=== PATIENT | male | born 1955 | race Caucasian/White ===

== ENCOUNTER → 2018-04-19 13:17 | Outpatient (CLI) | payer OTHER, SELFPAY ==
[2018-04-21 14:25] LABS: EBV EBNA Antibody IgG > 600.00 U/mL (< 18.00); EBV Virus IgM Ab < 36.00 U/mL (< 36.00)
== END ==
PROVIDERS: PCP Naturopath; Visit Provider Acupuncturist
DX: B27.00 Gammaherpesviral mononucleosis without complication (principal); A49.3 Mycoplasma infection, unspecified site; J16.0 Chlamydial pneumonia
CPT/HCPCS: 36415; 86631; 86632; 86663; 86664; 86665; 86738

== ENCOUNTER → 2018-05-04 07:40 | Outpatient (CLI) | payer OTHER, SELFPAY | PROVIDERS: PCP Naturopath; Visit Provider Acupuncturist | DX: B27.00 Gammaherpesviral mononucleosis without complication (principal) | CPT/HCPCS: 86665 ==

== ENCOUNTER → 2018-07-31 12:03 | Outpatient (CLI) | payer OTHER, SELFPAY ==
[2018-07-31 13:41] LABS: Cholesterol 202 mg/dL (140-199); HDL Cholesterol 65 mg/dL (40-60); LDL Cholesterol Calculated 106 mg/dL (<100); Triglycerides 155 mg/dL (35-150)
[2018-07-31 15:50] LABS: Hep C Virus Ab w/Reflex Quant NEGATIVE s/c (NEGATIVE); Hepatitis B Surface Antigen NEGATIVE s/c (NEGATIVE)
[2018-08-02 15:08] LABS: Hepatitis B Surf Ab Qualitativ Nonreactive (Nonreactive)
== END ==
PROVIDERS: PCP Naturopath; Visit Provider Acupuncturist
DX: B27.00 Gammaherpesviral mononucleosis without complication (principal); J16.0 Chlamydial pneumonia; A49.3 Mycoplasma infection, unspecified site; Z13.9 Encounter for screening, unspecified
CPT/HCPCS: 36415; 80061; 86631; 86632; 86706; 86738; 86803; 87340

== ENCOUNTER → 2018-08-24 08:52 | Outpatient (CLI) | payer OTHER, SELFPAY ==
[2018-08-24 09:28] LABS: Alanine Aminotransferase 44 IU/L (21-72); Albumin 4.2 g/dL (3.5-5.0); Albumin Globulin Ratio 1.4 (1.0-2.8); Alkaline Phosphatase 120 U/L (38-126); Aspartate Aminotransferase 34 IU/L (17-59); Bilirubin Total 0.2 mg/dL (0.2-1.3); Blood Urea Nitrogen 18 mg/dL (9-20); Calcium 9.2 mg/dL (8.4-10.2); Carbon Dioxide 33 mmol/L (22-32); Chloride 101 mmol/L (98-107); Estimated Glomerular Filt Rate > 60.0 mL/min (>60); Globulin 2.9 g/dL (1.7-4.1); Glucose 96 mg/dL (80-110); HEMOLYSIS < 15 (0-50); Potassium 4.5 mmol/L (3.4-5.1); Sodium 143 mmol/L (137-145); Total Protein 7.1 g/dL (6.3-8.2)
[2018-08-24 10:37] LABS: Free T3, Triiodothyronine Free 3.48 pg/mL (2.77-5.27)
[2018-08-24 10:38] LABS: Vitamin D 25 Hydroxy (D3) 73.2 ng/mL (30.0-100.0)
[2018-08-24 10:51] LABS: Thyroid Stimulating Hormone 2.54 uIU/mL (0.47-4.68)
[2018-08-24 11:34] LABS: Hemoglobin A1C% w Est Avg Glu 5.8 % (4.0-6.0)
[2018-08-26 11:33] LABS: Sex Hormone Binding Globulin 56 nmol/L (22-77)
[2018-08-28 12:25] LABS: Dehydroepiandrosterone Sulfate 77 mcg/dL (38-313)
[2018-08-29 14:46] LABS: Triiodothyronine T3 Reverse 15 ng/dL (8-25)
== END ==
PROVIDERS: PCP Naturopath; Visit Provider Acupuncturist
DX: Z00.00 Encounter for general adult medical examination without abnormal findings (principal); Z13.220 Encounter for screening for lipoid disorders; E63.9 Nutritional deficiency, unspecified; E55.9 Vitamin D deficiency, unspecified; E29.9 Testicular dysfunction, unspecified
CPT/HCPCS: 36415; 80053; 82306; 82627; 82728; 83036; 84270; 84402; 84443; 84481; 84482

== ENCOUNTER → 2019-05-29 07:25 | Outpatient (CLI) | payer OTHER, SELFPAY ==
[2019-05-29 08:51] LABS: Add Manual Diff / Slide Review NO; Basophils Absolute Auto 100 /uL (0-100); Basophils Percent Auto 1.9 % (0-2); Eosinophils Absolute Auto 300 /uL (0-450); Eosinophils Percent Auto 5.2 % (2-4); Hematocrit 41.7 % (41-53); Hemoglobin 14.3 g/dL (13.5-17.5); Lymphocytes Absolute Auto 2000 /uL (1100-4500); Lymphocytes Percent Auto 34.6 % (25-40); Mean Corpuscular HGB Conc 34.2 % (30-36); Mean Corpuscular Hemoglobin 30.9 PG (26-34); Mean Corpuscular Volume 90.4 fL (80-100); Monocytes Absolute Auto 600 /uL (0-900); Monocytes Percent Auto 9.7 % (3-14); Neutrophils Absolute Auto 2800 /uL (1500-7000); Neutrophils Percent Auto 48.6 % (50-75); Platelet Count 271 X10^3/uL (150-400); Red Blood Cell Count 4.62 X10^6/uL (4.5-5.9); Red Cell Distribution Width 13.2 % (11.6-14.8); White Blood Cell Count 5.7 X10^3/uL (4.5-11.0)
[2019-05-29 09:09] LABS: Alanine Aminotransferase 39 IU/L (21-72); Albumin Globulin Ratio 1.5 (1.0-2.8); Alkaline Phosphatase 87 U/L (38-126); Aspartate Aminotransferase 29 IU/L (17-59); BUN Creatinine Ratio 23.3 (6-22); Bilirubin Total 0.5 mg/dL (0.2-1.3); Blood Urea Nitrogen 21 mg/dL (9-20); Calcium 8.8 mg/dL (8.4-10.2); Carbon Dioxide 28 mmol/L (22-32); Chloride 103 mmol/L (98-107); Cholesterol 179 mg/dL (140-199); Estimated Glomerular Filt Rate > 60.0 mL/min (>60); Globulin 2.7 g/dL (1.7-4.1); Glucose 95 mg/dL (80-110); HDL Cholesterol 65 mg/dL (40-60); HEMOLYSIS < 15 (0-50); LDL Cholesterol Calculated 103 mg/dL (<100); Potassium 4.4 mmol/L (3.4-5.1); Sodium 138 mmol/L (137-145); Total Protein 6.7 g/dL (6.3-8.2); Triglycerides 55 mg/dL (35-150)
[2019-05-29 09:36] LABS: Prostate Specific Antigen Scrn 1.29 ng/mL (0.1-4.0)
[2019-05-29 09:38] LABS: Thyroid Stimulating Hormone 2.09 uIU/mL (0.47-4.68)
== END ==
LOC: LAB 07:27
PROVIDERS: PCP Naturopath; Visit Provider Naturopath
DX: Z00.00 Encounter for general adult medical examination without abnormal findings (principal); N40.1 Benign prostatic hyperplasia with lower urinary tract symptoms; R53.83 Other fatigue
CPT/HCPCS: 36415; 80053; 80061; 84443; 85025; G0103

== ENCOUNTER 2020-06-17 23:04 | Emergency (ER) | payer OTHER, SELFPAY ==
[2020-06-17 23:05] VITALS: BP 161/86; PULSE 58; RESP 20; TEMP 36.4; O2SAT 100
--- NOTE | 2020-06-17 23:18 | ED_ITS ---
HPI - Wound/Laceration General Chief Complaint: Wound/Laceration Stated Complaint: fell off ladder at home head laceration Time Seen by Provider: 06/17/20 23:10 Source: patient Mode of arrival: Ambulatory Limitations: no limitations History of Present Illness HPI narrative: 64-year-old male here for evaluation of injuries that he sustained when he slipped off of a step ladder that he was working on and hitting his head on the ground. There was no loss of conscious. He is not on anticoagulation. He is up-to-date on his tetanus. He states that he only fell a few feet. He has no neck pain. Did sustain a laceration to the back of his head. No neck pain. Review of Systems Constitutional Constitutional: Denies fever(s), Denies frequent falls and Reports headache(s) ENT Ears, Nose, Mouth, and Throat: Denies vertigo, Denies dizziness, Reports headache(s) and Denies disequilibrium Cardiovascular Cardiovascular: Denies chest pain and Denies dyspnea Respiratory Respiratory: Denies dyspnea Gastrointestinal Gastrointestinal: Denies abdominal pain Integumentary/Breasts Comments: Laceration to back of head Neurologic Neurologic: Denies behavioral changes, Denies confusion, Denies vertigo, Denies dizziness, Denies frequent falls, Reports headache(s) and Denies disequilibrium Psychiatric Psychiatric: Denies behavioral changes and Denies confusion Hematologic/Lymphatic Hematologic/Lymphatic: Denies easy bleeding and Denies easy bruising Patient History Medical History Healthy adult (Acute) Social History Smoking Status: Never smoker Smoking Status: Never smoker Substance Use Type: does not use Exam Initial Vital Signs Initial Vital Signs: Vital Signs Temperature 97.5 F L 06/17/20 23:05 Pulse Rate 58 L 06/17/20 23:05 Respiratory Rate 20 06/17/20 23:05 Blood Pressure 161/86 H 06/17/20 23:05 Pulse Oximetry 100 06/17/20 23:05 Const General: cooperative and comfortable HENMT Head: laceration Resp Effort & Inspection: normal respiratory effort Cardio Rate: regular rate Skin Other: Patient with a ?T? shaped laceration on the left occipital portion of his scalp total length approximately 6 cm. Neuro General: patient alert and patient awake Cognition: normal cognition Speech: speech normal Extrem General: capillary refill normal Psych Appearance: grossly normal and well kempt Procedures Laceration Repair Laceration 1: Site: scalp Size (cm): 6 Description: stellate and irregular Depth: simple, single layer Local Anesthetic: lidocaine 1% and with bicarb Amount of anesthesia used (mL): 10 Pre-repair: irrigated extensively and deep structures intact Skin layer closed with: lars (11) Scores GCS [place] coma scale eye opening: Spontaneous Neel coma scale verbal response: Orientated Neel coma scale motor response: Obey commands [place] coma scale total score: 15 Nexus Score for C-Spine Focal Neurologic deficit present: No Midline spinal tenderness present: No Altered level of conciousness present: No Intoxication present: No Distracting Injury Present: No Nexus Criteria for C-spine: 0 Course Orders Ordered: Discontinued Medications Bacitracin (Bacitracin) 1 applic TOP NOW ONE Stop: 06/17/20 23:49 Last Admin: 06/17/20 23:56 Dose: 1 applic Documented by: [facility] Lidocaine/Sodium Bicarbonate (Buffered Lidocaine 10 Ml Syr) 10 ml INJ NOW ONE Stop: 06/17/20 23:12 Last Admin: 06/17/20 23:28 Dose: 10 ml Documented by: PARVIZ Vital Signs Vital signs: Vital Signs - 8 hr 06/17/20 23:05 Temperature 97.5 F L Pulse Rate 58 L Respiratory Rate 20 Blood Pressure 161/86 H Pulse Oximetry 100 MDM - Wound/Laceration MDM Narrative Medical decision making narrative: No neck pain. Laceration of the scalp closed as described above. Feel that we can hold on head CT for now. Feel weak and ulna cervical spine CT for now. Given his exam. Patient was given care instructions and return precautions. He expressed understanding and agreement. Discharge Plan Departure Patient Disposition: Home Clinical Impression: Laceration Discharge Date/Time: 06/17/20 23:56 Instructions: DI for Laceration Repair Activity Restrictions/Additional Instructions: The lars do need to be removed in 7-10 days. This can be done by your primary provider or the walk-in clinic here at the hospital. Until then expect some oozing from the area. You can cover it with some antibiotic ointment. You can shower like normal. Just be careful with cleaning the area so that you do not catch the lars. Return to the emergency department for any new or worsening symptoms. You can take Tylenol for any headaches. Referrals: Selam Bah ND [Primary Care Provider] -
[2020-06-17] MEDS: LIDO 1%/SOD BICARB 8.4% (10ML) 10 ML SYRINGE INJ (23:28)
[2020-06-17] MEDS: BACITRACIN OINT 0.9 GM PCKT 1 APPLIC TOP (23:56)
== END 2020-06-17 23:56 | disposition home or self-care (01) ==
PROVIDERS: Emergency Provider Emergency Medicine; PCP Naturopath
DX: S01.01XA Laceration without foreign body of scalp, initial encounter (principal); W10.9XXA Fall (on) (from) unspecified stairs and steps, initial encounter; Y99.0 Civilian activity done for income or pay
CPT/HCPCS: 12002; 99282; 99283